=== PATIENT | female | born 1985 | race Caucasian/White ===

== ENCOUNTER 2019-02-08 16:14 | Outpatient (REF) | payer MEDICAID, SELFPAY ==
[2019-02-08 21:19] LABS: HCT 42.8 % (36.0-46.0); HGB 13.7 g/dL (12.0-15.5); Mean Corpuscular Hemoglobin 27.1 pg (27.0-33.0); Mean Corpuscular Volume 84.6 fL (80-95); Mean Platelet Volume 11.5 fL (8.0-11.0); Platelet Count 244 x1000/uL (130-400); RBC 5.06 m/cumm (4.00-5.20); RBC Distribution Width 14.6 % (11.7-14.6); White Blood Cell Count 6.95 k/cumm (4.4-10.8)
[2019-02-08 21:29] LABS: Iron 55 ug/dL (50-175); Total Iron Binding Capacity 294 ug/dL (250-450); Transferrin Sat 19 % (15-50)
[2019-02-08 21:43] LABS: ALT 26 U/L (12-78); AST 18 U/L (15-37); Anion Gap 10.7 mmol/L (3-11); BUN 11 mg/dL (7-18); CO2 25.3 mmol/L (21.0-32.0); CREATININE 0.76 mg/dL (0.55-1.02); Calcium 8.4 mg/dL (8.5-10.1); Calculated LDL 138 mg/dL; Chloride 103 mmol/L (98-107); Cholesterol 197 mg/dL (50-200); Folate 18.1 ng/mL (8.6-20.0); Glucose 75 mg/dL (70-100); HDL Cholesterol 36 mg/dL (40-60); Potassium 4.3 mmol/L (3.5-5.1); Sodium 139 mmol/L (136-145); Triglyceride 119 mg/dL (30-150)
== END 2019-02-08 16:34 ==
LOC: NCHCN 16:14
PROVIDERS: PCP Internal Medicine; Visit Provider Nurse Practitioner Family
DX: R00.2 Palpitations (principal); E66.9 Obesity, unspecified
CPT/HCPCS: 80048; 80061; 83721; 85027; 82746; 83540; 83550; 84450; 84460

== ENCOUNTER 2019-03-22 02:03 | Outpatient (CLI) | payer MEDICAID, SELFPAY ==
--- NOTE | 2019-03-22 09:00 | NS.NUTBLAN_ITS ---
DESCRIPTION:? Tahir Sheehan presents for nutrition consult for weight management. Tahir states she feels she has a tricky body type, understands weight is about metabolism, and is looking for how to allow her body to run optimally.? She states she has broad shoulders and has carried extra weight since childhood. States she is maintaining her current weight. She went to a restaurant busser on a cruise who performed bioelectrical impedance?study stating she has a fast metabolism and good muscle mass.? Suggested weight goal of 170 pounds.? Reports weight up and down depending on her relationships and how healthy they are; 4 years ago was hypoglycemic and quit all sugar and experienced weight loss; Lost 65 pounds 2 years ago;? 2 months ago and has started to lose weight although herhusband is experiencing anxiety which is stressful. Also experienced a tick bite which made her meat sensitive and she was nearly vegan for 9 months. Reports doing weight watchers on line eating more fruits and vegetables, minimal pasta.? Eats only whole milk dairy. 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 States she has lost 10 pounds since her marriage. Physical activity varies; currently taking 2 mile gentle walks secondary to recent illness. States she sleeps well. ASSESSMENT/INTERVENTION: Tahir acknowledges that she is well informed on weight loss and how to be successful. From our discussion she voices understanding of the connection between her stressors and her metabolism/weight although she states she eats the same no matter what. Weight discussion revealed a significant weight gain in 4th grade after her best friend and she was not? given an opportunity to process this or grieve. She senses her weight fluctuation may in part be secondary to her history of a kind of trauma. Discussed mindful eating - she does not readily relate to these concepts.??Basic food guide reviewed emphasizing importance of fruit/vegetables?? PLAN:?Tahir is willing to participate in stress management / counseling and maintain her current food plan for slow weight loss.? She will contact the Behavioral Health specialist at her PCP office as a start. will continue her current food plan that is allowing for weight loss
== END 2019-03-22 02:23 ==
PROVIDERS: PCP Internal Medicine; Visit Provider Dietitian, Registered
DX: E66.09 Other obesity due to excess calories (principal); Z71.3 Dietary counseling and surveillance
CPT/HCPCS: 97802

== ENCOUNTER 2022-04-23 15:45 | Emergency (ER) | payer MEDICAID, SELFPAY ==
[2022-04-23 15:59] VITALS: BP 132/82; PULSE 68; RESP 18; TEMP 36.8; O2SAT 98
--- NOTE | 2022-04-23 16:30 | DI.CT_ITS ---
Exam(s) CT ABDOMEN PELVIS W EXAM: CT ABDOMEN PELVIS W CLINICAL HISTORY: RUQ abd pain. TECHNIQUE: Imaging Protocol: Axial computed tomography images with coronal and sagittal reformatted images were created and reviewed CONTRAST MATERIAL: Intravenous: Omnipaque 100cc Oral: None COMPARISON: No exams were available for comparison FINDINGS: VISUALIZED LUNG BASES: No nodules nor pleural effusions evident. ABDOMEN: There is no ascites. Small hiatal hernia noted. LIVER: There are no focal hepatic lesions evident . GALLBLADDER/BILIARY: No obvious gallbladder pathology. CBD is not dilated. PANCREAS: No evidence of pancreatic mass nor dilatation of the pancreatic duct. SPLEEN: Spleen is not enlarged. No obvious intrasplenic lesions. Splenic and portal veins are paten t. ADRENALS: There are no significant adrenal masses. KIDNEYS:No cysts evident. No solid renal masses. No calculi nor hydronephrosis.. ABDOMINAL AORTA: Abdominal aorta is not enlarged. LYMPH NODES:There is no retroperitoneal nor paraaortic adenopathy. ABDOMINAL WALL: No evidence of significant anterior abdominal wall nor inguinal hernia. GI: There is no evidence of bowel obstruction, free air, nor abscess. However, at the ileocecal valve area there is a density on the medial wall measuring approximately 4 by 3.5 by 4.6 cm. There is possibly that this just represents adherent stool at this level and this appears continuous into the distal most terminal ileum which is slightly prominent in diameter (2.2 c m). PELVIS: GI: No evidence of appendicitis.No evidence of sigmoid diverticulitis. LYMPH NODES: There is no intrapelvic nor inguinal adenopathy. REPRODUCTIVE: Vaginal device probable menstrual cups noted. No abnormal adnexal findings. No free f luid. URINARY BLADDER: No calculi nor obvious masses evident OSSEOUS: No significant osseous lesions nor fractures. IMPRESSION: 1. No significant CT findings in the right upper quadrant of the abdomen which is apparently the area of this patient's pain. 2. There is no evidence of acute appendicitis. However, there is a masslike density measuring 4 x 3. 5 x 4.6 cm at the ileocecal valve. There is a possibly that this represents adherent fecal material. Recommend follow-up colonoscopy. RADIATION DOSE DELIVERED: 1,284.95mGy.cm Total DLP DATA REPOSITORY: All CT scans at this facility are submitted to the National Radiology Data Registry (NRDR) Dose Index Registry (DIR) with the [employer] (A[employer]). RADIATION OPTIMIZATION: All CT scans at this facility use at least one of these dose optimization te chniques: automated exposure control; mA and/or kV adjustment per patient size (includes targeted exa ms where dose is matched to clinical indication); or iterative reconstruction.
--- NOTE | 2022-04-23 16:33 | ED.GENADUL_ITS ---
Discharge Plan Disposition Patient Disposition: HOME Condition: Stable Discharge Details Clinical Impression: Abdominal pain Primary Care Provider: Danial Kathleen ED Provider: Sarah Fountain Discharge Instructions Instructions: Abdominal Pain (ED) Additional Instructions: CT is within normal limits no evidence of gallstones or infection in your gallbladder. No further abnormality noted. Labs are all within normal limits. No evidence of urinary tract infection. follow up with primary care provider in 3-5 days. Return to ED sooner if any worsening or concerns. Increase oral fluids. Please take Tylenol or Ibuprofen with food every 4-6 hours as needed for pain and swelling. Referrals: Danial Kathleen MD [Primary Care Provider] - 3 days Medical Decision Making 37-year-old female presents to the ER with chief complaint of right upper quadrant abdominal pain, abdominal muscle cramping and back muscle cramping which has been ongoing for approximately 2 weeks that is intermittent in nature. Labs ordered including CBC, CMP lipase and CT abdomen pelvis rule out cholecystitis/cholelithiasis. Labs are largely unremarkable, no leukocytosis, CMP largely within normal limits, lipase within normal limits, urinalysis shows moderate blood however patient is currently on her menses. CT shows no acute abnormality no cholecystitis. I did discuss this results with patient who verbalized understanding instructed to follow-up with PCP. Medical Records Medical records reviewed: Yes I reviewed the patient's medical records. Lab Data Lab results reviewed: Yes I reviewed the patient's lab results. Labs: Laboratory Tests Range/Units 04/23/22 04/23/22 04/23/22 16:52 16:52 16:56 WBC (4.4-10.8) 10^3/uL 7.33 RBC (3.93-5.22) 10^6/uL 5.16 Hgb (11.2-15.7) g/dL 13.8 Hct (36.0-46.0) % 44.2 MCV (80-95) fL 86 MCH (27.0-33.0) pg 26.7 L MCHC (32.0-36.0) % 31.2 L RDW (11.7-14.6) % 13.9 Plt Count (130-400) 10^3/uL 236 MPV (8.0-11.0) fL 10.1 Immature Gran % 0.4 Neutrophils % 65.9 Lymphocytes % 24.4 Monocytes % 5.6 Eosinophils % 2.7 Basophils % 1.0 Nucleated RBC % (0.0-0.3) % 0.0 Absolute Neutrophils (1.2-6.7) 10^3/uL 4.83 Absolute Lymphocytes (1.2-3.4) 10^3/uL 1.79 Absolute Monocytes (0.1-0.8) 10^3/uL 0.41 Absolute Eosinophils (0.0-0.7) 10^3/uL 0.20 Absolute Basophils (0.0-0.2) 10^3/uL 0.07 Sodium (136-145) mmol/L 137 Potassium (3.5-5.1) mmol/L 4.1 Chloride (98-107) mmol/L 102 Carbon Dioxide (21.0-32.0) mmol/L 29.9 Anion Gap (3-11) mmol/L 5.1 BUN (7-18) mg/dL 10 Creatinine (0.55-1.02) mg/dL 0.9 Est GFR (CKD-EPI 2020) (mL/min/1.73m2) 83.92 Glucose (74-106) mg/dL 75 Calcium (8.5-10.1) mg/dL 9.2 Magnesium (1.8-2.4) mg/dL 2.1 Total Bilirubin (0.2-1.0) mg/dL 0.4 AST (15-37) U/L 15 ALT (14-59) U/L 21 Alkaline Phosphatase (46-116) U/L 77 Total Protein (6.4-8.2) g/dL 8.1 Albumin (3.4-5.0) g/dL 3.9 Lipase (73-393) U/L 80 Urine Color (Yellow) Yellow Urine Clarity (Clear) Clear Urine pH (5-8) 6.5 Ur Specific [place] (1.005-1.025) 1.010 Urine Protein (Negative) mg/dL Negative Urine Ketones (Negative) mg/dL Negative Urine Blood (Negative) Moderate H Urine Nitrite (Negative) Negative Urine Bilirubin (Negative) Negative Urine Urobilinogen (Up TO 0.2) EU/dL 0.2 Ur Leukocyte Esterase (Negative) Negative Urine RBC (0-2) HPF 3-5 H Urine WBC (0-5) HPF Negative Ur Epithelial Cells (Negative) HPF Rare Urine Crystals (Negative) HPF Negative Urine Bacteria (Negative) HPF Rare Urine Casts (Negative) LPF Negative Urine Mucus (Negative) Negative Ur Culture Indicated? No Urine Glucose (Negative) mg/dL Negative HPI General Mode of arrival: ambulatory . Date/Time Provider Initiated Documentation: 04/23/22 15:53 . Limitations to Documentation: no limitations . Information obtained by: patient, RN notes reviewed and old records reviewed . HPI Narrative: 37-year-old female presents to the ER with chief complaint of right upper quadrant abdominal pain, abdominal muscle cramping and back muscle cramping which has been ongoing for approximately 2 weeks that is intermittent in nature. She denies any fever chills, nausea vomiting diarrhea or problems urinating. She reports that she was diagnosed with gallstones couple years ago. No history of abdominal surgeries. Her abdomen is soft nondistended nontender with palpation. General Stated Complaint: Abd Prob MARINA: 3 Review of Systems All systems reviewed & are unremarkable except as noted in HPI and below Gastrointestinal Gastrointestinal: Reports as per HPI and Reports abdominal pain PFSH All Active Problems (Updated 04/23/22 @ 18:25 by Sarah Fountain NP) Abdominal pain (Acute) Social History Smoking/Tobacco Use Status: Never Smoking risk assessment performed?: Yes Do you feel safe at home: Yes Do you feel safe in your relationship?: Yes Exam Narrative Exam Narrative: Constitutional: Alert and oriented x3. Appears stated age. Normal body habitus. Head: Normocephalic, no trauma. Eyes: Pupils PERRL, Red reflex noted, EOM's intact. Eyelids symmetrical without lesions, discharge, or swelling. ENT: Bilateral TM's WNL, External ear normal to inspection, no mastoid TTP, swelling, or erythema, Nasal turbinates WNL, no nasal discharge. Normal dentition, Posterior pharynx WNL, no exudate. Chest: RRR, Normal S1, S2, distal pulses intact. Resp: Lungs clear to auscultation bilaterally, no wheezes, rales, or rhonchi. Abdomen: Soft, non-distended, Normoactive bowel sounds all 4 quads. Musculoskeletal: Normal gait, 5/5 strength to all four extremities. Skin: No suspicious rashes or lesions. Capillary refill less than 2 sec. Neurologic: Cranial nerves II-XII intact. Alert and oriented x 3. Motor: No deficits noted. Sensory: Intact bilaterally all 4 extremities. Reflexes: DTR's intact bilaterally.. Hematologic/Lymphatic: No ecchymosis, no lymphadenopathy. Course Vital Signs Vital signs: Vital Signs Temperature 36.8 C 04/23/22 15:59 Pulse 68 04/23/22 15:59 Respiratory Rate 18 04/23/22 15:59 Blood Pressure 132/82 04/23/22 15:59 Pulse Oximetry 98 04/23/22 15:59 Temperature 36.8 C 04/23/22 15:59 Temperature Source Temporal Artery Scan 04/23/22 15:59 Pulse 68 04/23/22 15:59 Respiratory Rate 18 04/23/22 15:59 Respiratory Effort 04/23/22 16:09 Blood Pressure 132/82 04/23/22 15:59 Blood Pressure Position Sitting 04/23/22 15:59 Pulse Oximetry 98 04/23/22 15:59 Oxygen Delivery Method Room Air 04/23/22 15:59 Oxygen Flow Rate 0 04/23/22 15:59
[2022-04-23 16:59] LABS: Abs Immature Grans 0.03 10^3/uL (0.0-0.06); Absolute Basophil Count 0.07 10^3/uL (0.0-0.2); Absolute Lymphocyte Count 1.79 10^3/uL (1.2-3.4); Absolute Monocyte Count 0.41 10^3/uL (0.1-0.8); Absolute Neutrophil Count 4.83 10^3/uL (1.2-6.7); Eosinophils % 2.7; HCT 44.2 % (36.0-46.0); HGB 13.8 g/dL (11.2-15.7); Immature Grans % 0.4; Lymphocytes % 24.4; MCH 26.7 pg (27.0-33.0); MCHC 31.2 % (32.0-36.0); MCV 86 fL (80-95); MPV 10.1 fL (8.0-11.0); Monocytes % 5.6; Neutrophils % 65.9; Platelet Count 236 10^3/uL (130-400); RBC 5.16 10^6/uL (3.93-5.22); RDW 13.9 % (11.7-14.6); RDW-SD 43.3 fL; WBC 7.33 10^3/uL (4.4-10.8)
[2022-04-23 17:06] LABS: Bilirubin Negative (Negative); Blood Moderate (Negative); Clarity Clear (Clear); Glucose Negative (Negative); Ketones Negative (Negative); Leukocyte Esterase Negative (Negative); Nitrite Negative (Negative); Urobilinogen 0.2 EU/dL (Up TO 0.2); pH 6.5 (5-8)
[2022-04-23] MEDS: Omnipaque 350 MG/ML 100 ML BTL IJ (17:10)
[2022-04-23 17:13] LABS: ALT 21 U/L (14-59); AST 15 U/L (15-37); Albumin 3.9 g/dL (3.4-5.0); Alkaline Phosphatase 77 U/L (46-116); Anion Gap 5.1 mmol/L (3-11); BUN 10 mg/dL (7-18); Bilirubin, Total 0.4 mg/dL (0.2-1.0); CO2 29.9 mmol/L (21.0-32.0); CREATININE 0.9 mg/dL (0.55-1.02); Calcium 9.2 mg/dL (8.5-10.1); Chloride 102 mmol/L (98-107); Estimated GFR 83.92 (mL/min/1.73m2); Glucose 75 mg/dL (74-106); Lipase 80 U/L (73-393); Magnesium 2.1 mg/dL (1.8-2.4); Potassium 4.1 mmol/L (3.5-5.1); Sodium 137 mmol/L (136-145); Total Protein 8.1 g/dL (6.4-8.2)
[2022-04-23 17:17] LABS: Bacteria Rare HPF (Negative); C & S Indicated? No; Casts Negative LPF (Negative); Crystals Negative HPF (Negative); Epithelial Cells Rare HPF (Negative); Mucus Negative (Negative); WBC Negative HPF (0-5)
--- NOTE | 2022-04-23 17:58 | DI.VRAD_ITS ---
PROCEDURE INFORMATION: Exam: CT Abdomen And Pelvis With Contrast Exam date and time: 04/23/2022 5:16 PM Age: 37 years old Clinical indication: Abdominal pain; Localized; Right upper quadrant (ruq); Patient HX: Ruq abd pain TECHNIQUE: Imaging protocol: Computed tomography of the abdomen and pelvis with contrast. COMPARISON: No relevant prior studies available. FINDINGS: Lungs: No acute infiltrates of the lung bases. There is a subtle right lower lobe subpleural nodule measuring 5 x 3 mm. Series 4, image 5. Noncalcified. Likely a small benign granuloma. No further imaging follow-up recommended based on Fleischner criteria. Pleural spaces: No pleural effusion. Heart: Normal heart size. No pericardial effusion. No coronary artery atherosclerosis. Liver: Diffuse mild fatty liver change. Gallbladder and bile ducts: The gallbladder is normal in size and shape. No stones or inflammatory changes. Pancreas: Normal. No ductal dilation. Spleen: The spleen is normal in size, contour and attenuation. Adrenal glands: The adrenal glands are normal in size and contour bilaterally. Kidneys and ureters: The kidneys bilaterally are unremarkable. Normal attenutation. No hydronephrosis. No calculi. Stomach and bowel: Gastric morphology is unremarkable. No edema. No gastric outlet obstruction. Small hiatal hernia. No acute features. Small bowel loops are normal in course. There is mild fluid retention. There is no edema. No rebecca enteritis. No mechanical obstruction. The colon contains formed fecal material. There is no bowel wall thickening. No inflammatory features. No obstruction. Appendix: A non inflamed appendix is identified. Series 4, images 64-61. Intraperitoneal space: Unremarkable. No free air. No significant fluid collection. Vasculature: Unremarkable. No abdominal aortic aneurysm. Lymph nodes: Unremarkable. No enlarged lymph nodes. Urinary bladder: Unremarkable as visualized. Reproductive: Uterus is unremarkable. No adnexal mass or cyst. Intra vaginal menstrual cervical cup is in position. Bones/joints: Lumbar spine degenerative facet change. Soft tissues: Abdominal wall soft tissues are unremarkable. IMPRESSION: 1. No acute findings within the abdomen or pelvis. 2. A non inflamed appendix is identified. 3. No urinary tract or biliary tract disease. 4. Fatty liver change. 5. No adnexal mass or cyst. Patient appears to be currently menstruating with an intra vaginal cervical menstrual cup device in position. Dictated and Authenticated by: Antwan Rios MD. Ordering:NEAL Smith MD
[2022-04-23 18:34] VITALS: BP 115/81; PULSE 58; TEMP 36.5; O2SAT 96
== END 2022-04-23 18:43 | disposition home or self-care (01) ==
PROVIDERS: Emergency Provider Registered Nurse Emergency; PCP Internal Medicine
DX: R10.11 Right upper quadrant pain (principal)
CPT/HCPCS: 80053; 81025; 83690; 99285; 74177; 81003; 81015; 83735; 85025; 99282; J3490